=== PATIENT | male | born 1945 | race Caucasian/White ===

== ENCOUNTER 2018-09-16 11:21 | Inpatient (IN) ==
[2018-09-16] MEDS ORDERED: *HR* OxyCODONE/APAP 5/325 TABLET PO PRN (14:00)
[2018-09-16] MEDS ORDERED: Fluticasone Propionate Nasal 50 MCG/SPRAY BOTTLE NS PRN (14:00)
[2018-09-16] MEDS ORDERED: Simethicone 80 MG TAB.CHEW PO PRN (14:00)
[2018-09-16] MEDS: Furosemide 40 MG TABLET PO SCH (15:12)
[2018-09-16] MEDS: *HR* Metformin 500 MG TABLET PO SCH (17:23)
[2018-09-16] MEDS: Iron Polysaccharide Complex 150 MG CAPSULE PO SCH (22:12)
[2018-09-16] MEDS: Niacin (24 HR) 500 MG TAB.ER.24H PO SCH (22:15)
[2018-09-17 05:26] LABS: Basophils % 0.1 %; Eosinophils # 0.2 K/mcL (0.0-0.6); Hematocrit 25.3 % (37.5-50.1); Hemoglobin 7.3 g/dL (12.9-16.9); Immature Granulocytes % 4.3 % (0-4); Lymphocytes # 1.2 K/mcL (0.6-4.6); Lymphocytes % 15.4 %; Mean Corpuscular HGB Conc 28.9 g/dL (31.6-35.5); Mean Corpuscular Hemoglobin 23.9 pg (28.0-33.3); Mean Platelet Volume 11.2 fL (9.4-12.4); Monocytes # 0.4 K/mcL (0.0-1.3); Monocytes % 5.6 %; Neutrophils # 5.6 K/mcL (1.6-8.9); Nucleated Red Blood Cells 0.3 /100 WBC (0); Platelet Count 245 K/mcL (140-400); Red Blood Count 3.05 M/mcL (4.19-5.50); Red Cell Distribution Width 19.9 % (11.5-14.5); Segmented Neutrophils % 72.6 %; White Blood Count 7.7 K/mcL (4.3-11.1)
[2018-09-17 05:33] LABS: INR 1.2; Prothrombin Time 13.2 Seconds (9.4-12.1)
[2018-09-17 05:36] LABS: Activated Partial Thrombo Time 30.3 Seconds (26.0-36.0)
[2018-09-17 05:51] LABS: BUN/Creatinine Ratio 9 (6-26); Blood Urea Nitrogen 10 mg/dL (8-23); Calcium 7.3 mg/dL (8.6-10.3); Carbon Dioxide 21 mEq/L (23-29); Chloride 112 mEq/L (98-107); Glucose 110 mg/dL (70-105); Osmolality,Calculated 292 (280-300); Potassium 3.1 mEq/L (3.5-5.1); Sodium 141 mEq/L (136-145); eGFR For African Americans > 60 (> 60); eGFR For Non-African Americans > 60 (> 60)
[2018-09-17 06:32] LABS: Hypochromasia Present (Not Present); Large Platelets Present (Not Present); Microcytosis Present (Not Present); Platelet Estimate Normal (Normal); Poikilocytosis 1+ (Not Present); Polychromasia 1+ (Not Present)
[2018-09-17 06:33] LABS: Anisocytosis 1+ (Not Present)
[2018-09-17 06:34] LABS: Basophilic Stippling 1+ (Not Present)
[2018-09-17] MEDS: *HR* Metformin 500 MG TABLET PO SCH ×2 (06:37→17:44)
[2018-09-17] MEDS: Furosemide 40 MG TABLET PO SCH (08:11)
[2018-09-17] MEDS: Ascorbic Acid 500 MG TABLET PO SCH (08:11)
[2018-09-17] MEDS: Iron Polysaccharide Complex 150 MG CAPSULE PO SCH ×2 (08:11→21:01)
[2018-09-17] MEDS: Hydrocortisone Rectal 2.5% CRM 28 GM TUBE RC PRN (08:11)
[2018-09-17] MEDS: Tiotropium 18 MCG inhalation IH SCH (08:32)
[2018-09-17] MEDS: Niacin (24 HR) 500 MG TAB.ER.24H PO SCH (21:02)
[2018-09-18 06:19] LABS: Basophils % 0.2 %; Eosinophils # 0.2 K/mcL (0.0-0.6); Eosinophils % 1.9 %; Hematocrit 24.3 % (37.5-50.1); Hemoglobin 7.1 g/dL (12.9-16.9); Immature Granulocytes % 3.3 % (0-4); Lymphocytes # 1.3 K/mcL (0.6-4.6); Lymphocytes % 14.4 %; Mean Corpuscular HGB Conc 29.2 g/dL (31.6-35.5); Mean Corpuscular Hemoglobin 24.3 pg (28.0-33.3); Mean Corpuscular Volume 83.2 fL (83.0-100.0); Mean Platelet Volume 11.1 fL (9.4-12.4); Monocytes # 0.5 K/mcL (0.0-1.3); Monocytes % 5.5 %; Neutrophils # 6.5 K/mcL (1.6-8.9); Platelet Count 268 K/mcL (140-400); Red Blood Count 2.92 M/mcL (4.19-5.50); Red Cell Distribution Width 20.9 % (11.5-14.5); Segmented Neutrophils % 74.7 %; White Blood Count 8.7 K/mcL (4.3-11.1)
[2018-09-18 06:42] LABS: Alanine Aminotransferase 7 Units/L (7-52); Albumin 2.3 g/dL (3.5-5.7); Alkaline Phosphatase 123 Units/L (34-104); Aspartate Amino Transferase 8 Units/L (13-39); BUN/Creatinine Ratio 11 (6-26); Bilirubin,Total 0.4 mg/dL (0.3-1.0); Blood Urea Nitrogen 12 mg/dL (8-23); Calcium 7.2 mg/dL (8.6-10.3); Carbon Dioxide 23 mEq/L (23-29); Chloride 112 mEq/L (98-107); Globulin 2.4 g/dL (2.4-3.5); Glucose 104 mg/dL (70-105); Osmolality,Calculated 296 (280-300); Potassium 3.3 mEq/L (3.5-5.1); Sodium 143 mEq/L (136-145); Total Protein 4.7 g/dL (6.4-8.9); Uric Acid 8.4 mg/dL (2.3-7.6); eGFR For African Americans > 60 (> 60); eGFR For Non-African Americans > 60 (> 60)
[2018-09-18] MEDS: Tiotropium 18 MCG inhalation IH SCH (09:45)
[2018-09-18 09:55] LABS: % Iron Saturation 12 % (20-55); Iron 32 mcg/dL (65-175); Transferrin 185 mg/dL (203-362)
[2018-09-18] MEDS: Ascorbic Acid 500 MG TABLET PO SCH (10:12)
[2018-09-18] MEDS: Iron Polysaccharide Complex 150 MG CAPSULE PO SCH ×2 (10:13→20:25)
[2018-09-18] MEDS: *HR* Metformin 500 MG TABLET PO SCH ×2 (10:13→17:46)
[2018-09-18] MEDS: Furosemide 40 MG TABLET PO SCH (10:13)
[2018-09-18 10:15] LABS: Ferritin 178 ng/mL (20-250)
[2018-09-18 10:19] LABS: Folate 8.8 ng/mL (3.0-16.0)
[2018-09-18] MEDS: Niacin (24 HR) 500 MG TAB.ER.24H PO SCH (20:25)
[2018-09-19] MEDS: Tiotropium 18 MCG inhalation IH SCH (07:59)
[2018-09-19] MEDS: Hydrocortisone Rectal 2.5% CRM 28 GM TUBE RC PRN (08:10)
[2018-09-19] MEDS: *HR* Metformin 500 MG TABLET PO SCH (08:38)
[2018-09-19] MEDS: Ascorbic Acid 500 MG TABLET PO SCH (08:41)
[2018-09-19] MEDS: Iron Polysaccharide Complex 150 MG CAPSULE PO SCH (08:42)
[2018-09-19] MEDS: Furosemide 40 MG TABLET PO SCH (08:42)
[2018-09-19 09:20] VITALS: BP 104/55
== END 2018-09-19 15:55 | disposition home health service (06) ==
LOC: INPPIK 13:58
PROVIDERS: ADMIT Internal Medicine; ATTEND Internal Medicine